=== PATIENT | female | born 1960 | race Caucasian/White ===

== ENCOUNTER 2019-05-29 06:10 | Day surgery (SDC) | payer BC ==
[2019-05-29] VITALS (9 sets, daily range): BP systolic 129–165; BP diastolic 60–95
[~2019-05-29] VITALS: Ht 172.7 cm; Wt 62.1 kg
[~2019-05-29 06:10] MED LIST: LIPITOR40 MG ORAL; LOSARTAN-HCTZ1 EAC1 ORAL
[2019-05-29] MEDS ORDERED: cefOXitin Sod 2 GM in D5W 110 ML IVPB ONE (07:00)
[2019-05-29] MEDS ORDERED: cefOXitin 2gm Inj ONE (07:08)
[2019-05-29] MEDS ORDERED: Rocuronium Bromide 50mg/5ml Inj IV ONE (07:08)
[2019-05-29] MEDS ORDERED: Ropivacaine 5mg/ml Vial 30ml INJ ONE (07:08)
[2019-05-29] MEDS ORDERED: Succinylcholine 20mg/ml 10ml vial ONE (07:08)
[2019-05-29] MEDS ORDERED: cefOXitin 1gm Inj ONE (07:10)
[2019-05-29] MEDS ORDERED: fentaNYL 100 mcg/2 mL IV ONE (07:15)
[2019-05-29] MEDS ORDERED: Morphine Sulfate 10mg/ml Inj ONE (07:15)
[2019-05-29] MEDS ORDERED: Midazolam 2mg/2ml Inj ONE (07:15)
[2019-05-29] MEDS ORDERED: Propofol 200mg/20ml IV ONE (07:15)
[2019-05-29] MEDS ORDERED: Glycopyrrolate 0.2mg/ml 1ml Vial ONE (07:30)
[2019-05-29] MEDS ORDERED: Sterile Water Irrig 1000ml IRRIG ONE (07:30)
[2019-05-29] MEDS ORDERED: Neostigmine 1mg/ml 10ml Inj ONE (07:30)
[2019-05-29] MEDS ORDERED: NS Irrig 1000ml ONE (07:30)
[2019-05-29] MEDS ORDERED: LR 1000ml ONE (07:30)
[2019-05-29] MEDS ORDERED: Ketorolac 30mg Inj ONE (07:30)
--- NOTE | 2019-05-29 07:50 | Pre-Procedure Note/Attestation ---
Pre-Procedure Note/Attestation Complete Prior to Procedure Planned Procedure: bilateral Procedure Narrative: Laparscopic Bilateral Salpongo-oophorectomy Indications for Procedure Pre-Operative Diagnosis: Bilateral Ovarian Cysts Attestation I attest that I discussed the nature of the procedure; its benefits; risks and complications; and alternatives (and the risks and benefits of such alternatives ), prior to the procedure, with the patient (or the patient's legal fuels sales representative). I attest that, if there was a reasonable possibility of needing a blood transfusion, the patient (or the patient's legal fuels sales representative) was given the [facility] standardized written summary, pursuant to the Hair Michelle Blood Safety Act ([place] Health and Safety Code # 1645, as amended). I attest that I re-evaluated the patient just prior to the surgery and that there has been no change in the patient's H&P, except as documented below:NONE Bal Dubon MD May 29, 2019 07:50
[2019-05-29] MEDS ORDERED: NS Irrig 1000ml IRRIG ONE (07:56)
--- NOTE | 2019-05-29 08:33 | Anethesia Preoperative Eval ---
Anesthesia Pre-op PMH/ROS General Date of Evaluation: May 29, 2019 Time of Evaluation: 07:12 Anesthesiologist: Collins ASA Score: ASA 2 Mallampati Score Class I : Soft palate, uvula, fauces, pillars visible Class II: Soft palate, uvula, fauces visible Class III: Soft palate, base of uvula visible Class IV: Only hard plate visible Mallampati Classification: Class II Surgeon: Ling Diagnosis: Bylateral ovarian cysts Surgical Procedure: Laparoscopic salpingectomy Anesthesia History: none Family History: no anesthesia problems Allergies: Coded Allergies: Dust (Verified Allergy, Intermediate, 05/28/19) COUGH AND HARD TO BREATHE WITH OLD/BIG AMT DUST Medications: see eMAR Patient NPO?: Yes Past Medical History Cardiovascular: Reports: HTN - Stable on pills; Denies: CAD, [place], valve dz, arrhythmia, other Pulmonary: Denies: asthma, COPD, [place], other Gastrointestinal/Genitourinary: Reports: GERD; Denies: CRI, ESRD, other Neurologic/Psychiatric: Reports: depression/anxiety; Denies: dementia, CVA, TIA, other Endocrine: Denies: DM, hypothyroidism, steroids, other HEENT: Denies: cataract (L), cataract (R), glaucoma, [place] (L), [place] (R), other Hematology/Immune: Denies: anemia, DVT, bleeding disorder, other Musculoskeletal/Integumentary: Denies: OA, RA, DJD, DDD, edema, other PMH Narrative: as above PSxH Narrative: Hysterectomy for uterine fibroidsr Anesthesia Pre-op Phys. Exam Physician Exam Last Vital Signs Date Time Temp Pulse Resp B/P (MAP) Pulse Ox O2 Delivery O2 Flow Rate FiO2 05/29/19 07:09 Room Air 05/29/19 07:04 98.1 67 18 165/88 99 Constitutional: NAD Neurologic: CN 2-12 intact Cardiovascular: RRR, no M/R/G Respiratory: CTA Gastrointestinal: S/NT/ND Airway Exam Mallampati Score: Class II MO: full Neck: flexible ROM: full Teeth: intact Dentures: no upper, no lower Anesthesia Pre-op A/P Labs see chart Accucheck NSR Studies Pre-op Studies: EKG - NSR Risk Assessment & Plan Assessment: GA with ETT PONV prevention Plan: ASA 2 Status Change Before Surgery: No Pre-Antibiotics Drug: Cefoxitin 1gr. Given Within 1 Hr of Incision: Yes Time Given: 08:05 Edison Guadalupe MD May 29, 2019 08:33
[2019-05-29] MEDS ORDERED: LR 1000ml 1,000 ML IVLG SCH (08:36)
[2019-05-29] MEDS ORDERED: Metoclopramide 10mg/2ml Inj IVP PRN (08:45)
[2019-05-29] MEDS ORDERED: Acetaminophen (Non formulary) 100 ML IV ONE (08:45)
[2019-05-29] MEDS ORDERED: Ketorolac 30mg Inj IV PRN (08:45)
[2019-05-29] MEDS ORDERED: DiphenhydrAMINE 50mg/ml Inj IVP PRN (08:45)
[2019-05-29] MEDS ORDERED: Hydromorphone 0.5mg/0.5ml inj IVP PRN (08:45)
--- NOTE | 2019-05-29 09:59 | Immediate Post-Op Evaluation ---
Immediate Post-Op Evalulation Immediate Post-Op Evalulation Procedure: Laparoscopic bilateral oophorsalpingectomy Date of Evaluation: May 29, 2019 Time of Evaluation: 09:58 IV Fluids: 1400 Blood Products: none Estimated Blood Loss: 50 Urinary Output: 200 Blood Pressure Systolic: 135 Blood Pressure Diastolic: 82 Pulse Rate: 68 Respiratory Rate: 20 O2 Sat by Pulse Oximetry: 99 Temperature (Fahrenheit): 97.6 Pain Score (1-10): 1 Nausea: No Vomiting: No Complications none Patient Status: awake, patent, extubated, none Hydration Status: adequate Edison Guadalupe MD May 29, 2019 09:59
[2019-05-29] MEDS ORDERED: HYDROcodone/Acetamin 5/325 tab ORAL PRN (10:00)
[2019-05-29] MEDS ORDERED: HYDROmorphone 1mg/ml Carpuject SUBQ PRN (10:00)
[2019-05-29] MEDS ORDERED: Tylenol #3 tab (300mg/30mg) ORAL PRN (10:00)
--- NOTE | 2019-05-29 10:00 | Brief Operative Note ---
Immediate Post Operative Note Operative Note Pre-op Diagnosis: Bilateral Ovarian Cysts Procedure: Bilateral Salpingo-oophorectomy, Extensive Adhesion Lysis, Entero-lysis Post-op Diagnosis: Same, Pelvic Adhesions, Bowel Adhesions Post-op Diagnosis: same as pre-op plus Findings: consistent w/pre-op dx studies Surgeon: Bal Dubon MD [employer] Counterperson: Angelina Cody MD Anesthesiologist: Zeinab Guadalupe MD Anesthesia: general Specimen: yes - Right and Left Tubes and ovaries, Pelvic Mass Complications: none Condition: stable Fluids: LR D5 Estimated Blood Loss: minimal Drains: none Implant(s) used?: No Bal Dubon MD May 29, 2019 10:00
--- NOTE | 2019-05-29 11:31 | 48 Hour Post Anesthesia Eval ---
Post Anesthesia Evaluation Procedure: Laparoscopic bilateral oophorsalpingectomy Date of Evaluation: May 29, 2019 Time of Evaluation: 11:30 Blood Pressure Systolic: 132 0: 84 Pulse Rate: 68 Respiratory Rate: 20 Temperature (Fahrenheit): 97.6 O2 Sat by Pulse Oximetry: 98 Airway: patent Nausea: No Vomiting: No Pain Intensity: 1 Hydration Status: adequate Cardiopulmonary Status: stable Mental Status/LOC: patient returned to baseline Follow-up Care/Observations: n/a Post-Anesthesia Complications: none Follow-up care needed: ready to discharge Edison Guadalupe MD May 29, 2019 11:31
[2019-05-29] MEDS ORDERED: D5 1/2NS 1,000 ML IV SCH (15:30)
--- NOTE | 2019-05-29 16:45 | Operative Note - Dictated ---
DATE OF OPERATION: 05/29/2019 PREOPERATIVE DIAGNOSIS: Bilateral ovarian cyst. POSTOPERATIVE DIAGNOSES: Bilateral ovarian cyst plus extensive pelvic adhesions and extensive bowel adhesions. PROCEDURE PERFORMED: Video laparoscopy with bilateral salpingo-oophorectomy, extensive enterolysis, and extensive lysis of pelvic adhesions. SURGEON: Bal Dubon M.D. CARE TRANSPORT NURSE: Angelina Cody M.D. ANESTHESIA: General endotracheal. ANESTHESIOLOGIST: Edison Guadalupe M.D. PROCEDURE IN DETAIL: After all the appropriate consents were signed, the patient was brought to the operating room, placed on table in supine position, and general endotracheal anesthesia was induced without complication. The patient was then placed in a dorsal lithotomy position. Perineum, vagina, and abdomen were prepped and draped in the usual fashion for the procedure. The patient was examined under anesthesia. Uterus was not found. There was a previous hysterectomy performed. The pelvic mass could not be palpated. At this time, a vaginal sponge on a ring forceps was placed for manipulation. The umbilical incision was then made and a Veress needle was introduced and the abdomen was insufflated to 15 mmHg. An 11 mm trocar was placed in the belly button puncture. The two additional trocars were placed in the midline in the left lower quadrant. At this time, the patient was visualized pelvis could be seen well. There were multiple adhesions over the posterior cul-de-sac from the colon and some adhesions from the small bowel covering up the areas of the infundibulopelvic ligaments and the adnexa. At this time, adhesiolysis and enterolysis were undertaken and continued until the tube and ovary on the left side were visualized. At this time, the photographs were taken and the procedure continued with the adhesiolysis on the right side where finally the adnexa was visualized. Once both adnexa were visualized, the tube and ovary on the right were elevated and cutting bipolar were utilized to clamp, coagulate, and cut the left infundibulopelvic ligament. The dissection continued until the remnant of the utero-ovarian ligaments were reached, which were transected. The adnexa on the right side was placed in the pelvis and the dissection then continued on the left side where the ovary was also elevated and the infundibulopelvic ligament was coagulated and cut. This coagulation and transection also continued through the rest of the remnant of the broad ligament supporting the right ovary, as this was coagulated and cut. Complete hemostasis was noted in the area of dissection and in the area of the salpingo-oophorectomies bilaterally. There was a mass identified in the pelvis, which was also grasped and submitted separately as pelvic mass. At this time, instruments were removed one after another under direct visualization with the laparoscope. Laparoscope was removed last. At this time, a laparoscopic endobag was placed in the pelvis and both tubes and ovaries were placed in the bag and removed from the field without spilling any contents. Prior to beginning of the procedure, pelvic washings were taken and submitted separately for evaluation. The patient was then placed in the supine position after all the incisions were closed using 0 Vicryl suture and a 4-0 Monocryl. Incisions were covered with Steri-Strips and benzoin. The patient was brought to the recovery room in excellent condition. She tolerated the procedure very well. Bal Dubon M.D. DR: ANI JOB#: [id number] CC:
== END 2019-05-29 11:20 | disposition home or self-care (01) ==
LOC: SUR 06:10
DX: N83.202 Unspecified ovarian cyst, left side (principal); N83.201 Unspecified ovarian cyst, right side; I10 Essential (primary) hypertension; K21.9 Gastro-esophageal reflux disease without esophagitis; F32.9 Major depressive disorder, single episode, unspecified; F41.9 Anxiety disorder, unspecified; Z90.710 Acquired absence of both cervix and uterus
CPT/HCPCS: 58661; 58662; J0330; J0690; J0694; J1885; J2250; J2270; J2405; J2704; J2710; J2765; J2795; J3010; 94003; 94150

== ENCOUNTER 2019-07-13 05:57 | Day surgery (SDC) | payer BC ==
[~2019-07-13] VITALS: Ht 172.7 cm; Wt 63.5 kg
[2019-07-13] VITALS (10 sets, daily range): BP systolic 108–143; BP diastolic 59–98
[2019-07-13] MEDS ORDERED: LR 1000ml ONE (07:00)
[2019-07-13] MEDS ORDERED: NS Irrig 1000ml ONE (07:00)
[2019-07-13] MEDS ORDERED: Sterile Water Irrig 1000ml IRRIG ONE (07:00)
[2019-07-13] MEDS ORDERED: fentaNYL 100 mcg/2 mL IV ONE (07:11)
[2019-07-13] MEDS ORDERED: Midazolam 2mg/2ml Inj ONE (07:11)
[2019-07-13] MEDS ORDERED: Propofol 200mg/20ml IV ONE (07:13)
[2019-07-13] MEDS ORDERED: Lidocaine 1% MPF 10mg/ml 5ml ONE (07:13)
--- NOTE | 2019-07-13 07:18 | Pre-Procedure Note/Attestation ---
Pre-Procedure Note/Attestation Complete Prior to Procedure Planned Procedure: not applicable Procedure Narrative: laparoscopic cholecystectomy Indications for Procedure Pre-Operative Diagnosis: symptomatic cholelithiasis Attestation I attest that I discussed the nature of the procedure; its benefits; risks and complications; and alternatives (and the risks and benefits of such alternatives ), prior to the procedure, with the patient (or the patient's legal senior outside sales representative). I attest that, if there was a reasonable possibility of needing a blood transfusion, the patient (or the patient's legal senior outside sales representative) was given the [facility] standardized written summary, pursuant to the Hair Michelle Blood Safety Act ([place] Health and Safety Code # 1645, as amended). I attest that I re-evaluated the patient just prior to the surgery and that there has been no change in the patient's H&P, except as documented below: Heraclio Michaels Jul 13, 2019 07:18
[2019-07-13] MEDS ORDERED: Rocuronium Bromide 50mg/5ml Inj IV ONE (07:23)
[2019-07-13] MEDS ORDERED: Succinylcholine 20mg/ml 10ml vial ONE (07:23)
[2019-07-13] MEDS ORDERED: Iothalamate Meglumine 60% 30ML INJ ONE (07:24)
[2019-07-13] MEDS ORDERED: ceFAZolin sod 2 GM in D5W 110 ML IV ONE (07:30)
[2019-07-13] MEDS ORDERED: Acetaminophen (Non formulary) 100 ML IV ONE (08:00)
[2019-07-13] MEDS ORDERED: LR 1000ml 1,000 ML IVLG SCH (08:15)
[2019-07-13] MEDS ORDERED: Metoclopramide 10mg/2ml Inj IVP PRN (08:15)
[2019-07-13] MEDS ORDERED: Hydromorphone 0.5mg/0.5ml inj IVP PRN (08:15)
[2019-07-13] MEDS ORDERED: Ketorolac 30mg Inj IV PRN (08:15)
[2019-07-13] MEDS ORDERED: DiphenhydrAMINE 50mg/ml Inj IVP PRN (08:15)
--- NOTE | 2019-07-13 08:15 | Anethesia Preoperative Eval ---
Anesthesia Pre-op PMH/ROS General Date of Evaluation: Jul 13, 2019 Time of Evaluation: 07:10 Anesthesiologist: Collins ASA Score: ASA 2 Mallampati Score Class I : Soft palate, uvula, fauces, pillars visible Class II: Soft palate, uvula, fauces visible Class III: Soft palate, base of uvula visible Class IV: Only hard plate visible Mallampati Classification: Class II Surgeon: Kasi Diagnosis: Symptomatic cholelithiasis Surgical Procedure: Lap cholecystectomy Anesthesia History: none, PONV Family History: no anesthesia problems Allergies: Coded Allergies: Dust (Verified Allergy, Intermediate, 05/28/19) COUGH AND HARD TO BREATHE WITH OLD/BIG AMT DUST Medications: see eMAR Patient NPO?: Yes Past Medical History Cardiovascular: Reports: HTN; Denies: CAD, [place], valve dz, arrhythmia, other Pulmonary: Denies: asthma, COPD, JUNG, other Gastrointestinal/Genitourinary: Reports: GERD Neurologic/Psychiatric: Reports: depression/anxiety; Denies: dementia, CVA, TIA, other Endocrine: Denies: DM, hypothyroidism, steroids, other HEENT: Denies: cataract (L), cataract (R), glaucoma, [place] (L), [place] (R), other Hematology/Immune: Denies: anemia, DVT, bleeding disorder, other Musculoskeletal/Integumentary: Denies: OA, RA, DJD, DDD, edema, other PMH Narrative: as above PSxH Narrative: Bilateral salpingectomy Anesthesia Pre-op Phys. Exam Physician Exam Last Vital Signs Date Time Temp Pulse Resp B/P (MAP) Pulse Ox O2 Delivery O2 Flow Rate FiO2 07/13/19 06:48 Room Air 07/13/19 06:44 97.1 72 18 143/98 100 Constitutional: NAD Neurologic: CN 2-12 intact Cardiovascular: RRR, no M/R/G Respiratory: CTA Gastrointestinal: S/NT/ND Airway Exam Mallampati Score: Class II MO: limited Neck: stiff ROM: limited Teeth: intact Dentures: no upper, no lower Anesthesia Pre-op A/P Labs see chart Studies Pre-op Studies: EKG - NSR Risk Assessment & Plan Assessment: ASA 2 Plan: GA with ETT Status Change Before Surgery: No Pre-Antibiotics Drug: Ancef 1gr Given Within 1 Hr of Incision: Yes Time Given: 08:06 Vakulenko,Edison MD Jul 13, 2019 08:15
[2019-07-13] MEDS ORDERED: Morphine Sulfate 10mg/ml Inj ONE (08:20)
[2019-07-13] MEDS ORDERED: Sodium Chloride 10ml vial INJ ONE ×2 (08:22→08:27)
[2019-07-13] MEDS ORDERED: Ketorolac 30mg Inj ONE (08:22)
[2019-07-13] MEDS ORDERED: ePHEDrine 50mg/ml Inj ONE (08:27)
[2019-07-13] MEDS ORDERED: Neostigmine 1mg/ml 10ml Inj ONE (08:30)
[2019-07-13] MEDS ORDERED: Glycopyrrolate 0.2mg/ml 1ml Vial ONE (08:30)
--- NOTE | 2019-07-13 09:27 | Immediate Post-Op Evaluation ---
Immediate Post-Op Evalulation Immediate Post-Op Evalulation Procedure: Laparoscopic cholecystectomy Date of Evaluation: Jul 13, 2019 Time of Evaluation: 09:26 IV Fluids: 1200 Blood Products: none Estimated Blood Loss: <50 Urinary Output: none Blood Pressure Systolic: 141 Blood Pressure Diastolic: 83 Pulse Rate: 74 Respiratory Rate: 20 O2 Sat by Pulse Oximetry: 99 Temperature (Fahrenheit): 98.1 Pain Score (1-10): 1 Nausea: No Vomiting: No Complications none Patient Status: reacts, patent, extubated, none Hydration Status: adequate Edison Guadalupe MD Jul 13, 2019 09:27
--- NOTE | 2019-07-13 09:59 | Brief Operative Note ---
Immediate Post Operative Note Operative Note Pre-op Diagnosis: symptomatic cholelithiasis Procedure: lap laya Post-op Diagnosis: same as pre-op Surgeon: osmin Anesthesiologist: hayden Anesthesia: general, local Specimen: yes Complications: none Condition: stable Fluids: see record Estimated Blood Loss: minimal Drains: none Implant(s) used?: No Heraclio Michaels Jul 13, 2019 09:59
[2019-07-13] MEDS ORDERED: Tylenol #3 tab (300mg/30mg) ORAL PRN (10:00)
[2019-07-13] MEDS ORDERED: HYDROcodone/Acetamin 5/325 tab ORAL PRN (10:00)
[2019-07-13] MEDS ORDERED: HYDROmorphone 1mg/ml Carpuject SUBQ PRN (10:00)
--- NOTE | 2019-07-13 12:59 | 48 Hour Post Anesthesia Eval ---
Post Anesthesia Evaluation Procedure: Laparoscopic cholecystectomy Date of Evaluation: Jul 13, 2019 Time of Evaluation: 11:50 Blood Pressure Systolic: 142 0: 76 Pulse Rate: 76 Respiratory Rate: 20 Temperature (Fahrenheit): 97.5 O2 Sat by Pulse Oximetry: 98 Airway: patent Nausea: No Vomiting: No Pain Intensity: 2 Hydration Status: adequate Cardiopulmonary Status: stable Mental Status/LOC: patient returned to baseline Follow-up Care/Observations: n/a Post-Anesthesia Complications: none Follow-up care needed: ready to discharge Edison Guadalupe MD Jul 13, 2019 12:59
[2019-07-13] MEDS ORDERED: D5 1/2NS 1,000 ML IV SCH (15:00)
--- NOTE | 2019-07-13 18:30 | Operative Note - Dictated ---
DATE OF OPERATION: 07/13/2019 PREOPERATIVE DIAGNOSIS: Symptomatic cholelithiasis. POSTOPERATIVE DIAGNOSIS: Symptomatic cholelithiasis. OPERATION PERFORMED: Laparoscopic cholecystectomy. ATTENDING SURGEON: Heraclio Michaels M.D. NOZZLE TENDER: None. ANESTHESIOLOGIST: Edison Guadalupe M.D. ANESTHESIA: General PRIOR AUTHORIZATION TECHNICIAN. ESTIMATED BLOOD LOSS: Minimal. IV FLUIDS: Please see anesthesia records. COMPLICATIONS: None. DRAINS: None. COUNTS: Sponge and needle count correct x2. WOUND CLASSIFICATION: Class III. SPECIMENS: Gallbladder contained, sent to pathology for review. ANTIBIOTICS: A 2 g Ancef, given one hour prior to cut time. INDICATIONS FOR PROCEDURE: This is a 58-year-old female, referred to me by Dr. Bal Dubon who has identified the patient having abdominal discomfort and has symptoms of cholelithiasis and ordered ultrasound, which identified a large gallbladder stone. The patient was seen in the office and evaluated initially on 04/29/2019 and a long discussion was held with the patient in regards to her clinical findings, diagnosis, etiology and at that point in time, the patient decided to monitor and evaluate without surgical intervention. The patient continued for the next three months and began to become more symptomatic and therefore was seen on 06/07/2019 and after explaining the risks, benefits, and alternatives of surgery, had decided to proceed with surgical intervention. Preoperative workup was completed by the patient's primary care physician and she was scheduled for 07/13/2019 for elective laparoscopic cholecystectomy. OPERATIVE NOTE: The patient was taken to the operating room and placed on the operating table in supine position with bilateral arms out. All bony prominences were well padded. SCDs were placed. Preoperative time-out was taken identifying the patient, procedure, operative staff, and surgical staff. General anesthesia was induced and the patient was intubated. A 2 g of Ancef IV were given one hour prior to cut time. The abdomen was clipped, prepped, and draped in the standard surgical fashion. No Herrmann was inserted given the patient voided prior to entering the operating room. A local anesthetic was infiltrated in all proposed skin incisions and port sites. An infraumbilical incision was made using fresh #11 scalpel, and carried down through the fascia, which was elevated and incised. Entry into the abdomen was obtained using the open Noble technique without complication. A 12 mm Noble trocar was inserted. The abdomen was insufflated to 15 mmHg. The patient tolerated the insufflation well. Secondary trocars were placed under direct visualization beginning with a 11 mm subxiphoid port followed by two 5 mm right subcostal ports. Using most lateral port, the gallbladder dome was grasped and retracted over the liver. Omental adhesions to the gallbladder were gently dissected off. The infundibulum was grasped using the midclavicular port and retracted towards the right lower quadrant. Peritoneal adhesions to the gallbladder were gently dissected out until the critical view could be obtained. Of note, the gallbladder had a large contained stone, which was clearly evident. Furthermore, there was some chronic inflammatory changes identified near the infundibulum. The cystic duct and artery were carefully dissected out until the critical view was obtained. Of note, there was a very short cystic artery, only approximately 1 cm in length from the takeoff of the main branch. The cystic artery was doubly clipped and divided. The only remaining structure entering within the gallbladder at infundibulum was the cystic duct. The cystic duct was doubly clipped and divided. The gallbladder was taken off the liver attachments with electrocautery. Gallbladder was placed in endoscopic retrieval bag and removed from the abdomen using the infraumbilical port site. The gallbladder fossa was evaluated and noted to be hemostatic otherwise and noted to be hemostatic with cystic duct and artery clips in place without any leakage of bile or bleeding. Good hemostasis noted. The gallbladder fossa was irrigated and cleansed. At this time, we began the conclusion of our procedure. Secondary trocars were removed under direct visualization followed by the umbilical trocar site. The abdomen was allowed to desufflate. The umbilical trocar site fascia was reapproximated using a [id number] #0 Vicryl suture. Remaining skin incisions were cleansed and reapproximated using 4-0 Monocryl subcutaneous interrupted sutures. Skin glue and Steri-Strips were applied. The patient tolerated procedure well and was extubated and taken to postanesthetic care in stable condition. Heraclio Michaels M.D. DR: HEAVEN JOB#: [id number] CC:
== END 2019-07-13 11:15 | disposition home or self-care (01) ==
LOC: SUR 05:57
DX: K80.20 Calculus of gallbladder without cholecystitis without obstruction (principal); I10 Essential (primary) hypertension; K21.9 Gastro-esophageal reflux disease without esophagitis; F32.9 Major depressive disorder, single episode, unspecified; F41.9 Anxiety disorder, unspecified; Z90.79 Acquired absence of other genital organ(s)
CPT/HCPCS: 47562; J0330; J0690; J1885; J2250; J2270; J2405; J2704; J2710; J3010; J7120; 94003; 94150